=== PATIENT | male | born 1995 | race Caucasian/White ===

== ENCOUNTER 2021-12-12 02:07 | Emergency (ER) | payer BC ==
[2021-12-12] MEDS ORDERED: LODINE CAP 300300 MG PO (05:41)
== END 2021-12-12 05:55 | disposition home or self-care (01) ==
LOC: ER1 02:07
DX: S61.012A Laceration without foreign body of left thumb without damage to nail, initial encounter (principal); Z23 Encounter for immunization; W31.2XXA Contact with powered woodworking and forming machines, initial encounter
CPT/HCPCS: 12001; 73130; 90471; 90715; 99283